=== PATIENT | male | born 1990 | race Caucasian/White ===

== ENCOUNTER → 2019-02-23 | Outpatient (CLI) | payer OTHER ==
--- NOTE | 2019-02-23 14:16 | RAD ---
EXAM: Chest, 2 views. HISTORY: Clinical trial for Crohn's disease treatment. COMPARISON: None. FINDINGS: 2 views of the chest are obtained. There is no infiltrate, pleural effusion or pneumothorax. The heart is normal in size. There is hyperinflation likely due to inspiratory effort. IMPRESSION: No acute pulmonary finding. Electronically signed by: Mira Dominguez MD (02/23/2019 2:12 PM) [id number]
== END | disposition home or self-care (01) ==
LOC: RAD 13:28
PROVIDERS: ATTEND Internal Medicine Gastroenterology
DX: K50.90 Crohn's disease, unspecified, without complications (principal)
CPT/HCPCS: 71046